=== PATIENT | male | born 1970 | race Caucasian/White ===

== ENCOUNTER 2016-09-23 12:12 | Emergency (ER) | payer MEDICARE ==
[~2016-09-23 12:12] MED LIST: ACETAMINOPHEN325 MG PO; CATAPRES0.1 MG PO; CLARITIN10 MG PO; COLACE100 MG PO; LACTINEX1 EACH PO; LAXATIVE OF CHOICE; METHADONE10 MG PO; NORVASC5 MG PO; NYSTATIN SUSP1 ML/ML SSW; PENICILLIN V P250 M1 PO; PEPCID AC20 MG PO; VIBRAMYCIN100 M1 PO
[2016-09-23 13:16] LABS: BASOPHIL 0.5 % (0-2); EOSINOPHIL 6.3 % (0-5); HCT 36.1 % (42.0-52.0); HGB 12.9 g/dl (13.2-18.0); LYMPHOCYTE 29.4 % (15-48); MCH 28.4 pg (25.0-31.0); MCHC 35.7 g/dL (32.0-36.0); MCV 79.3 fL (78.0-100.0); MONOCYTE 5.3 % (0-12); MPV 9.9 fL (6.0-9.5); NEUTROPHIL 58.5 % (41-80); PLT 199 K/uL (150-400); RBC 4.55 M/uL (4.70-6.00); RDW 13.8 % (11.5-14.0); WBC 6.4 K/uL (4.0-10.5)
[2016-09-23 13:32] LABS: ACETAMINOPHEN (TYLENOL) < 5.0 ug/mL (10.0-30.0); ALCOHOL (ETOH) MEDICAL NONE DETECTED; SALICYLATE < 6 ug/mL (0-300)
[2016-09-23 13:33] LABS: CREATININE 0.9 mg/dL (0.7-1.2)
[2016-09-23 13:37] LABS: AMPHETAMINES NEGATIVE (NEGATIVE); BARBITURATES NEGATIVE (NEGATIVE); BENZODIAZEPINES NEGATIVE (NEGATIVE); COCAINE NEGATIVE (NEGATIVE); MARIJUANA (THC) NEGATIVE (NEGATIVE); TRICYCLIC ANTIDEPRESSANT NEGATIVE (NEGATIVE)
[2016-09-23 13:40] LABS: METHADONE POSITIVE (NEGATIVE)
[2016-10-21] MEDS ORDERED: CATAPRES0.1 MG PO (07:23)
[2016-10-21] MEDS ORDERED: CELEXA20 MG PO (13:15)
[2016-10-21] MEDS ORDERED: ASPIR 8181 MG PO (13:15)
[2016-10-21] MEDS ORDERED: LOPRESSOR25 MG PO (13:16)
[2016-10-21] MEDS ORDERED: NORCO 5-325 TA1 EACH PO (13:16)
[2016-10-21] MEDS ORDERED: CIPRO500 MG PO (13:16)
== END 2016-09-23 19:20 | disposition other institution (70) ==
LOC: FER 12:12
PROVIDERS: Internal Medicine
DX: F32.9 Major depressive disorder, single episode, unspecified (principal); F22 Delusional disorders; Z79.899 Other long term (current) drug therapy
CPT/HCPCS: 36415; 80048; 80305; 85025; G0480; J1885

== ENCOUNTER 2016-09-30 15:29 | Emergency (ER) | payer MEDICARE ==
[2016-09-30 16:42] LABS: BILIRUBIN NEGATIVE (NEGATIVE); BLOOD NEGATIVE Ery/uL (NEGATIVE); CLARITY CLEAR (CLEAR); COLOR YELLOW (YELLOW); GLUCOSE (U) NORMAL (NORMAL); KETONE (U) NEGATIVE (NEGATIVE); LEUKOCYTES NEGATIVE Leu/uL (NEGATIVE); NITRITE NEGATIVE (NEGATIVE); PROTEIN TRACE (LOW) mg/dL (NEGATIVE); SPECIFIC GRAVITY 1.025 (1.001-1.030); UROBILINOGEN 0.2 mg/dL (0.2-1.0)
[2016-09-30 16:50] LABS: SQUAMOUS EPITHELIAL CELLS RARE; URINARY RBC RARE; URINARY WBC RARE
[2016-09-30 17:03] LABS: BASOPHIL 0.6 % (0-2); EOSINOPHIL 1.3 % (0-5); HCT 39.2 % (42.0-52.0); HGB 13.9 g/dl (13.2-18.0); LYMPHOCYTE 20.9 % (15-48); MCH 28.5 pg (25.0-31.0); MCHC 35.5 g/dL (32.0-36.0); MCV 80.5 fL (78.0-100.0); MONOCYTE 7.6 % (0-12); MPV 10.4 fL (6.0-9.5); NEUTROPHIL 69.6 % (41-80); PLT 246 K/uL (150-400); RBC 4.87 M/uL (4.70-6.00); RDW 14.7 % (11.5-14.0); WBC 8.5 K/uL (4.0-10.5)
[2016-09-30 17:21] LABS: ALBUMIN 4.6 g/dL (3.5-5.0); BILIRUBIN - TOTAL 0.7 mg/dL (0.1-1.0); GLOBULIN (CALCULATION) 3.3 g/dL (2.2-4.2); POTASSIUM 3.3 mmol/L (3.5-5.1); TOTAL PROTEIN 7.9 g/dL (6.4-8.3)
[2016-09-30 17:22] LABS: ACETAMINOPHEN (TYLENOL) < 5.0 ug/mL (10.0-30.0); ALCOHOL (ETOH) MEDICAL NONE DETECTED; SALICYLATE < 6 ug/mL (0-300)
[2016-09-30 17:28] LABS: AMPHETAMINES NEGATIVE (NEGATIVE); BARBITURATES NEGATIVE (NEGATIVE); BENZODIAZEPINES NEGATIVE (NEGATIVE); COCAINE NEGATIVE (NEGATIVE); MARIJUANA (THC) NEGATIVE (NEGATIVE); METHADONE POSITIVE (NEGATIVE); TRICYCLIC ANTIDEPRESSANT NEGATIVE (NEGATIVE)
[2016-10-21] MEDS ORDERED: CATAPRES0.1 MG PO (07:23)
[2016-10-21] MEDS ORDERED: ASPIR 8181 MG PO (13:15)
[2016-10-21] MEDS ORDERED: CELEXA20 MG PO (13:15)
[2016-10-21] MEDS ORDERED: NORCO 5-325 TA1 EACH PO (13:16)
[2016-10-21] MEDS ORDERED: LOPRESSOR25 MG PO (13:16)
[2016-10-21] MEDS ORDERED: CIPRO500 MG PO (13:16)
== END 2016-09-30 20:25 | disposition other institution (70) ==
LOC: FER 15:29
PROVIDERS: Nurse Practitioner Family
DX: R45.851 Suicidal ideations (principal); F32.9 Major depressive disorder, single episode, unspecified; I10 Essential (primary) hypertension; T46.5X2A Poisoning by other antihypertensive drugs, intentional self-harm, initial encounter; Z79.899 Other long term (current) drug therapy
CPT/HCPCS: 36415; 80053; 80185; 80305; 81001; 85025; G0480; J1885

== ENCOUNTER 2016-10-12 18:21 | Emergency (ER) | payer MEDICARE ==
[2016-10-12 20:38] LABS: BASOPHIL 0.3 % (0-2); HCT 40.1 % (42.0-52.0); HGB 14.3 g/dl (13.2-18.0); LYMPHOCYTE 35.7 % (15-48); MCH 28.6 pg (25.0-31.0); MCHC 35.7 g/dL (32.0-36.0); MCV 80.2 fL (78.0-100.0); MONOCYTE 6.7 % (0-12); MPV 9.6 fL (6.0-9.5); NEUTROPHIL 55.3 % (41-80); PLT 300 K/uL (150-400); RDW 15.2 % (11.5-14.0); WBC 7.9 K/uL (4.0-10.5)
[2016-10-12 21:05] LABS: POTASSIUM 3.2 mmol/L (3.5-5.1)
[2016-10-12 21:18] LABS: AMPHETAMINES NEGATIVE (NEGATIVE); BARBITURATES NEGATIVE (NEGATIVE); BENZODIAZEPINES NEGATIVE (NEGATIVE); COCAINE NEGATIVE (NEGATIVE); MARIJUANA (THC) NEGATIVE (NEGATIVE); TRICYCLIC ANTIDEPRESSANT NEGATIVE (NEGATIVE)
[2016-10-12 21:20] LABS: METHADONE POSITIVE (NEGATIVE)
[2016-10-21] MEDS ORDERED: CATAPRES0.1 MG PO (07:23)
[2016-10-21] MEDS ORDERED: CELEXA20 MG PO (13:15)
[2016-10-21] MEDS ORDERED: ASPIR 8181 MG PO (13:15)
[2016-10-21] MEDS ORDERED: LOPRESSOR25 MG PO (13:16)
[2016-10-21] MEDS ORDERED: NORCO 5-325 TA1 EACH PO (13:16)
[2016-10-21] MEDS ORDERED: CIPRO500 MG PO (13:16)
== END 2016-10-13 10:30 | disposition home or self-care (01) ==
LOC: FER 18:21
PROVIDERS: Emergency Medicine
DX: J20.9 Acute bronchitis, unspecified (principal); F11.20 Opioid dependence, uncomplicated; F32.9 Major depressive disorder, single episode, unspecified; I10 Essential (primary) hypertension; F43.10 Post-traumatic stress disorder, unspecified; Z79.899 Other long term (current) drug therapy
CPT/HCPCS: 36415; 71020; 80048; 80305; 85025; 87450; 87804; 87899; 94640; 94664

== ENCOUNTER 2020-11-20 05:17 | Emergency (ER) | payer MEDICARE ==
[~2020-11-20 05:17] MED LIST changes: +AMOXICILLIN500 MG PO; +ASPIR 8181 MG PO; +ASPIRIN EC81 MG PO; +ATIVAN0.5 MG PO; +AUGMENTIN 875-1 EACH PO; +BACTRIM DS TAB1 EACH PO; +BRILINTA90 MG PO; +BUSPIRONE HCL15 MG PO; +CELEXA20 MG PO; +CENTRUM SILVER1 EAC5 PO; +CIPRO500 MG PO; +CLEOCIN300 MG PO; +COREG12.5 MG PO; +CYCLOBENZAPRINE10 MG PO; +FOLIC ACID1 MG PO; +HCTZ12.5 MG PO; +IBUPROFEN800 MG PO; +K-DUR20 MEQ PO; +KEFLEX500 MG PO; +LEVAQUIN500 MG PO; +LIPITOR40 MG PO; +LISINOPRIL40 MG PO; +LOPRESSOR25 MG PO; +LOPRESSOR50 MG PO; +MEDROL 4MG DOSEP4 MG PO; +NITROQUIK SL0.4 MG SL; +NORCO 5-325 TA1 EACH PO; +ONDANSETRON ODT4 MG SL; +PERCOCET 7.5/321 TAB PO; +PLAVIX75 MG PO; +POTASSIUM CHLO20 ME2 PO; +PREDNISONE 20MG20 MG PO; +PRINIVIL20 MG PO; +PROAIR HFA8.5 GM INH; +PROTONIX 40MG T40 MG PO; +TAMIFLU 75MG CA75 MG PO; +TESSALON PERLE100 M1 PO; +TYLENOL #31 EACH PO; +VASOTEC10 MG PO; +VIBRAMYCIN100 MG PO; +VITAMIN B-121000 MC1 PO; +VOLTAREN **OUT75 MG PO; +ZOFRAN8 MG PO; +lamictal
[2020-11-20 05:49] LABS: BASOPHIL 0.7 % (0-2); EOSINOPHIL 4.5 % (0-5); HCT 39.8 % (42.0-52.0); HGB 13.4 g/dl (13.2-18.0); LYMPHOCYTE 23.3 % (15-48); MCH 27.6 pg (25.0-31.0); MCHC 33.7 g/dL (32.0-36.0); MCV 81.9 fL (78.0-100.0); MONOCYTE 8.9 % (0-12); MPV 9.9 fL (6.0-9.5); NEUTROPHIL 62.3 % (41-80); NRBC 0; PLT 209 K/uL (150-400); RBC 4.86 M/uL (4.70-6.00); WBC 7.3 K/uL (4.0-10.5)
[2020-11-20 06:04] LABS: ALBUMIN 4.2 g/dL (3.4-5.0); BILIRUBIN - TOTAL 0.8 mg/dL (0.2-1.0); BUN/CREAT RATIO (CALC) 13.6 RATIO; CREATININE 0.88 mg/dL (0.67-1.17); GLOBULIN (CALCULATION) 3.8 g/dL; POTASSIUM 2.8 mmol/L (3.5-5.1)
[2020-11-20] MEDS ORDERED: AMOXICILLIN500 M2 PO (06:32)
== END 2020-11-20 06:43 | disposition home or self-care (01) ==
LOC: FER 05:17
PROVIDERS: Emergency Medicine
DX: K04.7 Periapical abscess without sinus (principal); R07.89 Other chest pain; I10 Essential (primary) hypertension; I25.2 Old myocardial infarction; Z88.1 Allergy status to other antibiotic agents; Z88.8 Allergy status to other drugs, medicaments and biological substances; Z95.5 Presence of coronary angioplasty implant and graft
CPT/HCPCS: 36415; 71045; 80053; 84484; 85025; 93005

== ENCOUNTER 2021-02-16 13:40 | Emergency (ER) | payer MEDICARE ==
[~2021-02-16 13:40] MED LIST changes: +AMOXICILLIN500 M2 PO
[2021-02-16] MEDS ORDERED: CLINDAMYCIN 15150 MG PO (16:29)
[2021-02-16] MEDS ORDERED: PRINIVIL20 MG PO (16:56)
== END 2021-02-16 17:00 | disposition home or self-care (01) ==
LOC: FER 13:40
DX: K04.7 Periapical abscess without sinus (principal); I10 Essential (primary) hypertension; Z88.1 Allergy status to other antibiotic agents; Z88.3 Allergy status to other anti-infective agents
CPT/HCPCS: 99282

== ENCOUNTER 2021-04-15 03:49 | Day surgery (SDCO) | payer MEDICARE, OTHER ==
[~2021-04-15] VITALS: Ht 188 cm; Wt 126.2 kg
[~2021-04-15 03:49] MED LIST changes: +CLINDAMYCIN 15150 MG PO
[2021-04-15 04:41] LABS: EOSINOPHIL 5.8 % (0-5); HCT 41.1 % (42.0-52.0); HGB 13.8 g/dl (13.2-18.0); LYMPHOCYTE 30.7 % (15-48); MCH 27.7 pg (25.0-31.0); MCHC 33.6 g/dL (32.0-36.0); MCV 82.4 fL (78.0-100.0); MONOCYTE 9.4 % (0-12); MPV 10.5 fL (6.0-9.5); NEUTROPHIL 52.8 % (41-80); NRBC 0; PLT 157 K/uL (150-400); RBC 4.99 M/uL (4.70-6.00); WBC 6.7 K/uL (4.0-10.5)
[2021-04-15 04:55] LABS: INR 1.14 (0.9-1.2); PTT 31.3 SECONDS (24.4-34.7)
[2021-04-15 05:53] LABS: BILIRUBIN - TOTAL 0.7 mg/dL (0.2-1.0); BUN/CREAT RATIO (CALC) 16.9 RATIO; CREATININE 0.89 mg/dL (0.67-1.17); GLOBULIN (CALCULATION) 3.4 g/dL; POTASSIUM 2.7 mmol/L (3.5-5.1); PRO-BNP 81 pg/mL (<125); TOTAL PROTEIN 7.4 g/dL (6.4-8.2)
[2021-04-15] MEDS ORDERED: SUBOXONE PO (14:09)
[2021-04-15 14:56] LABS: BUN/CREAT RATIO (CALC) 14.1 RATIO; CREATININE 0.99 mg/dL (0.67-1.17); POTASSIUM 2.7 mmol/L (3.5-5.1)
--- NOTE | 2021-04-16 00:55 | NUR ---
NEW ORDER RECEIVED FOR HYDRALAZINE 10MG IVP DUE TO BP 186/84 ,HR 67. PT STABLE AT THIS TIME WILL CONTINUE TO MONITOR NO S/S OF DISTRESS NOTED.
[2021-04-16 06:39] LABS: BASOPHIL 0.9 % (0-2); EOSINOPHIL 7.3 % (0-5); HCT 39.7 % (42.0-52.0); HGB 13.1 g/dl (13.2-18.0); LYMPHOCYTE 35.8 % (15-48); MCH 27.5 pg (25.0-31.0); MCV 83.2 fL (78.0-100.0); MPV 10.7 fL (6.0-9.5); NEUTROPHIL 45.6 % (41-80); NRBC 0; PLT 168 K/uL (150-400); RBC 4.77 M/uL (4.70-6.00); RDW 13.8 % (11.5-14.0); WBC 5.6 K/uL (4.0-10.5)
[2021-04-16 07:23] LABS: ALBUMIN 3.7 g/dL (3.4-5.0); BILIRUBIN - TOTAL 0.7 mg/dL (0.2-1.0); BUN/CREAT RATIO (CALC) 18.5 RATIO; CREATININE 0.92 mg/dL (0.67-1.17); GLOBULIN (CALCULATION) 3.7 g/dL; MAGNESIUM 2.1 mg/dL (1.8-2.4); POTASSIUM 3.1 mmol/L (3.5-5.1); TOTAL PROTEIN 7.4 g/dL (6.4-8.2)
[2021-04-16] MEDS ORDERED: PLAVIX75 MG PO (10:11)
[2021-04-16] MEDS ORDERED: LIPITOR40 MG PO (10:11)
[2021-04-16] MEDS ORDERED: ASPIRIN EC81 MG PO (10:11)
[2021-04-16] MEDS ORDERED: TOPROL XL 50 MG50 MG PO (10:11)
[2021-04-16] MEDS ORDERED: PRINIVIL20 MG PO (10:11)
[2021-04-16] MEDS ORDERED: NITROGLYCERIN0.4 MG SL (10:11)
[2021-04-17 09:09] LABS: HBSAG SCREEN Negative (Negative); HEP A AB, IGM Negative (Negative); HEP B CORE AB, IGM Negative (Negative); HEP C VIRUS AB 0.1 (0.0-0.9)
== END 2021-04-16 11:25 | disposition home or self-care (01) ==
LOC: FER 03:49 → FMS 08:56
PROVIDERS: Emergency Medicine Emergency Medical Services; ADMIT Family Medicine
DX: R07.89 Other chest pain (principal); E87.6 Hypokalemia; R74.01 Elevation of levels of liver transaminase levels; I10 Essential (primary) hypertension; R60.0 Localized edema; I25.10 Atherosclerotic heart disease of native coronary artery without angina pectoris; E78.5 Hyperlipidemia, unspecified; I25.2 Old myocardial infarction; Z95.5 Presence of coronary angioplasty implant and graft; Z88.1 Allergy status to other antibiotic agents; Z88.8 Allergy status to other drugs, medicaments and biological substances; Z79.02 Long term (current) use of antithrombotics/antiplatelets; Z79.82 Long term (current) use of aspirin; Z79.899 Other long term (current) drug therapy; Z20.822 Contact with and (suspected) exposure to COVID-19
CPT/HCPCS: 36415; 71045; 80048; 80053; 80061; 82043; 83036; 83735; 83880; 84443; 84484; 85025; 85610; 85730; 93005; 94010; 96372; G0378; J0360; J1650; J2270; J2405; J3480; U0002

== ENCOUNTER 2021-07-28 00:26 | Emergency (ER) | payer MEDICARE ==
[~2021-07-28 00:26] MED LIST changes: +NITROGLYCERIN0.4 MG SL; +SUBOXONE PO; +TOPROL XL 50 MG50 MG PO
[2021-07-28 01:40] LABS: BASOPHIL 0.7 % (0-2); EOSINOPHIL 2.2 % (0-5); HCT 39.6 % (42.0-52.0); HGB 13.5 g/dl (13.2-18.0); MCH 27.9 pg (25.0-31.0); MCHC 34.1 g/dL (32.0-36.0); MCV 81.8 fL (78.0-100.0); MONOCYTE 17.8 % (0-12); MPV 10.5 fL (6.0-9.5); NEUTROPHIL 68.8 % (41-80); NRBC 0; PLT 140 K/uL (150-400); RBC 4.84 M/uL (4.70-6.00); RDW 13.7 % (11.5-14.0); WBC 4.1 K/uL (4.0-10.5)
[2021-07-28 01:43] LABS: INR 1.3 (0.9-1.2); PROTHROMBIN TIME 15.5 SECONDS (11.8-13.4); PTT 34.4 SECONDS (24.4-34.7)
[2021-07-28 02:06] LABS: INFLUENZA A NAA NEGATIVE (NEGATIVE)
[2021-07-28 02:09] LABS: CORONAVIRUS 2019 SARS-COV-2 POSITIVE (NEGATIVE)
[2021-07-28 02:18] LABS: CREATININE 1.01 mg/dL (0.67-1.17); POTASSIUM 2.8 mmol/L (3.5-5.1)
[2021-07-28 02:21] LABS: ALBUMIN 4.1 g/dL (3.4-5.0); BILIRUBIN - TOTAL 0.6 mg/dL (0.2-1.0); GLOBULIN (CALCULATION) 3.7 g/dL; TOTAL PROTEIN 7.8 g/dL (6.4-8.2)
== END 2021-07-28 06:10 | disposition home or self-care (01) ==
LOC: FER 00:26
PROVIDERS: Emergency Medicine
DX: U07.1 COVID-19 (principal); E87.6 Hypokalemia; K76.0 Fatty (change of) liver, not elsewhere classified; R07.89 Other chest pain; I10 Essential (primary) hypertension; I25.10 Atherosclerotic heart disease of native coronary artery without angina pectoris; Z88.1 Allergy status to other antibiotic agents
CPT/HCPCS: 36415; 71045; 71275; 80053; 84484; 85025; 85379; 85610; 85730; 93005; J1885; J2405; J3475; J3480; J3490; J7030; J7050; Q9967; U0002

== ENCOUNTER 2021-10-12 15:02 | Emergency (ER) | payer MEDICARE ==
[2021-10-12 16:37] LABS: BASOPHIL 1.5 % (0-2); HCT 43.5 % (42.0-52.0); HGB 14.5 g/dl (13.2-18.0); LYMPHOCYTE 23.1 % (15-48); MCHC 33.3 g/dL (32.0-36.0); MONOCYTE 9.3 % (0-12); MPV 10.8 fL (6.0-9.5); NEUTROPHIL 61.6 % (41-80); NRBC 0; PLT 168 K/uL (150-400); RBC 5.18 M/uL (4.70-6.00); WBC 5.9 K/uL (4.0-10.5)
[2021-10-12 16:58] LABS: INR 1.15 (0.9-1.2); PROTHROMBIN TIME 14.1 SECONDS (11.8-13.4); PTT 32.4 SECONDS (24.4-34.7)
[2021-10-12 17:02] LABS: ALBUMIN 4.1 g/dL (3.4-5.0); BILIRUBIN - TOTAL 0.6 mg/dL (0.2-1.0); BUN/CREAT RATIO (CALC) 15.9 RATIO; CREATININE 0.82 mg/dL (0.67-1.17); GLOBULIN (CALCULATION) 4.2 g/dL; POTASSIUM 3.2 mmol/L (3.5-5.1); TOTAL PROTEIN 8.3 g/dL (6.4-8.2)
[2021-10-12] MEDS ORDERED: PRINIVIL20 MG PO (18:29)
[2021-10-12] MEDS ORDERED: TOPROL XL 50 MG50 MG PO (18:29)
== END 2021-10-12 18:44 | disposition home or self-care (01) ==
LOC: FER 15:02
PROVIDERS: Emergency Medicine
DX: I10 Essential (primary) hypertension (principal); I25.2 Old myocardial infarction; Z79.899 Other long term (current) drug therapy; Z28.310 Unvaccinated for COVID-19
CPT/HCPCS: 36415; 71045; 80053; 84484; 85025; 85610; 85730; 93005

== ENCOUNTER 2022-03-04 01:33 | Emergency (ER) | payer OTHER ==
[~2022-03-04 01:33] MED LIST changes: +ANTIVERT25 MG PO; +CEPHALEXIN500 M1 PO; +KEFLEX250 MG PO
[2022-03-04 03:46] LABS: BASOPHIL 0.8 % (0-2); EOSINOPHIL 3.4 % (0-5); HCT 42.8 % (42.0-52.0); HGB 14.3 g/dl (13.2-18.0); MCH 27.7 pg (25.0-31.0); MCHC 33.4 g/dL (32.0-36.0); MCV 82.8 fL (78.0-100.0); MONOCYTE 7.5 % (0-12); MPV 10.6 fL (6.0-9.5); NRBC 0; PLT 197 K/uL (150-400); RBC 5.17 M/uL (4.70-6.00); WBC 7.7 K/uL (4.0-10.5)
[2022-03-04 04:08] LABS: ALBUMIN 4.1 g/dL (3.4-5.0); BILIRUBIN - TOTAL 0.4 mg/dL (0.2-1.0); BUN/CREAT RATIO (CALC) 17.7 RATIO; CREATININE 0.79 mg/dL (0.67-1.17); GLOBULIN (CALCULATION) 4.2 g/dL; POTASSIUM 3.1 mmol/L (3.5-5.1); TOTAL PROTEIN 8.3 g/dL (6.4-8.2)
== END 2022-03-04 04:34 | disposition home or self-care (01) ==
LOC: FER 01:33
PROVIDERS: Emergency Medicine
DX: I10 Essential (primary) hypertension (principal); I25.10 Atherosclerotic heart disease of native coronary artery without angina pectoris; Z79.899 Other long term (current) drug therapy; Z28.310 Unvaccinated for COVID-19
CPT/HCPCS: 36415; 71045; 80053; 84484; 85025; 93005